=== PATIENT | female | born 1985 | race Caucasian/White ===

== ENCOUNTER 2019-02-02 16:13 | Emergency (ER) | payer BC ==
[~2019-02-02] VITALS: Ht 162.6 cm; Wt 175.1 kg
--- OUTSIDE RECORDS SUMMARY | 2019-02-02 16:15 | XMS REPORT | Clinical Summary ---
Author Author [facility] Organization [facility] Address Unknown Phone Unavailable Care Team Providers Care Human Services Instructor Name Role Phone Cipriano Valdez DO PCP Allergies No Known Allergies Medications End Date Status Medication Sig Dispensed Refills Start Date Active sertraline (ZOLOFT) 50 MG Take 50 mg by 0 tablet mouth daily. Active HYDROcodone-acetaminophen Take 1 tablet 0 (NORCO) 5-325 mg per by mouth tablet every 6 (six) hours as needed for moderate pain. Active ondansetron (ZOFRAN) 4 MG Take 4 mg by 0 tablet mouth every 8 (eight) hours as needed for nausea or vomiting. Active clonAZEPAM (KlonoPIN) 0.5 0 08/09/201 MG tablet 6 Active Problems Problem Noted Date Endometrial cancer 05/17/2016 Cancer Staging: Clinical stage from 03/02/2016: FIGO Stage IA (T1a, N0, M0) - Signed by Edilberto Bean MD on 05/17/2016 Wound disruption, post-op, skin 03/17/2016 Encounters Care Team Description Date Type Specialty William Sheffield MA 01/08/2019 Telephone General Surgery after 02/01/2018 Family History Medical History Relation Name Comments Breast cancer Maternal Aunt Relation Name Status Comments Brother Alive Father Alive Maternal Aunt Alive Maternal Uncle Mother Alive Social History Date Tobacco Use Types Packs/Day Years Used Former Smoker Smokeless Tobacco: Never Used Alcohol Use Drinks/Week oz/Week Comments No Sex Assigned at Date Recorded Not on file Industry Job Start Date Occupation Not on file Not on file Not on file Travel End Travel History Travel Start No recent travel history available. Last Filed Vital Signs Not on file Plan of Treatment Health Maintenance Due Date Last Done Comments CERVICAL CANCER SCREENING 2004 INFLUENZA VACCINE 05/22/2019 Results Not on fileafter 02/01/2018 Insurance Payer Benefit Subscriber ID Type Phone Address Plan / Group BCBS BCBS xxxxxxxxxxxx PPO CHOICE PPO/MAURICE ENG PPO Advance Directives Patient has advance care planning documents on file. For more information, radha almendarez contact: Dale Vela [address] [place] [address]
--- OUTSIDE RECORDS SUMMARY | 2019-02-02 16:15 | XMS REPORT ---
Author Author [facility] Address Unknown Phone Unavailable Care Team Providers Care Medical Data Entry Clerk Name Role Phone Unavailable Unavailable Payers Payer Name Policy Type Policy Number Effective Date Expiration Date Problems This patient has no known problems. Allergies, Adverse Reactions, Alerts Allergy Name Allergy Type Status Severity Reaction(s) Onset Date Inactive Date Treating Clinician Comments No Known Allergies DA Active U 2015-07-15 00:00:00 Medications This patient has no known medications.
== END 2019-02-02 17:13 | disposition home or self-care (01) ==
LOC: ER 16:13
DX: M25.551 Pain in right hip (principal); M25.561 Pain in right knee; M13.851 Other specified arthritis, right hip; M13.861 Other specified arthritis, right knee; M13.0 Polyarthritis, unspecified
CPT/HCPCS: 99282